=== PATIENT | male | born 1980 | race Caucasian/White ===

== ENCOUNTER 2020-07-15 19:12 | Emergency (ER) | payer BC, OTHER ==
[2020-07-15] MEDS: Albuterol/Ipratropium 3.0-0.5 MG/3 ML Neb Soln NEB ONE (19:20)
--- NOTE | 2020-07-15 19:29 | EDM.PDOC ---
ED HPI GENERAL MEDICAL PROBLEM - General Stated Complaint: ED VISIT Time Seen by Provider: 07/15/20 19:12 Source of Information: Reports: Patient History Limitations: Reports: No Limitations - History of Present Illness INITIAL COMMENTS - FREE TEXT/NARRATIVE: Patient comes emergency department today from the winter show here in town with complaints of shortness of breath. This patient has smoked cigarettes for 20 years about three quarters a pack a day. Over the past couple of days he has had some sinus congestion tightness and some shortness of breath. No fever no chills. He about every year at this time has a very similar presentation but this is more profound and got much worse while he was at the winter show. He has had a cough the past couple of days. Today he went to the winter shown was very difficult for him to breathe in there and he just cannot get a deep breath. He can only feel comfortable sitting forward. He has no pain in his chest. He has no swelling or globus sensation in his throat. He complains of sinus congestion and pressure and drainage. No weakness dizziness lightheadedness. No palpitations. No syncope. He has not had any covid exposure no covid symptoms. left lateral rib Pain Score (Numeric/FACES): 1 - Related Data Allergies Allergy/AdvReac Type Severity Reaction Status Date / Time No Known Allergies Allergy Verified 07/15/20 19:57 Home Meds: Home Meds Colchicine [Colcrys] 0.6 mg PO DAILY #3 tab 08/02/13 [Rx] Allopurinol [Zyloprim] 300 mg PO DAILY 07/15/20 [History] predniSONE [Prednisone] 60 mg PO DAILY 4 Days #15 tablet 07/15/20 [Rx] ED ROS GENERAL - Review of Systems Review Of Systems: Comprehensive ROS is negative, except as noted in HPI. ED EXAM, GENERAL - Physical Exam Exam: See Below Free Text/Narrative:: Pt is sitting in the tripod position and can only speak in 2-3 word sentences and appears to be air stacking a little bit. NO retractions. Exam Limited By: Respiratory Distress General Appearance: Alert, WD/WN, Moderate Distress Ears: Normal External Exam, Normal TMs Nose: Normal Inspection, Normal Mucosa Throat/Mouth: Normal Inspection, Normal Lips Head: Atraumatic, Normocephalic Neck: Normal Inspection, Supple, Non-Tender, Full Range of Motion Respiratory/Chest: Respiratory Distress, Decreased Breath Sounds (Bilaterally profoundly decreased. ), Wheezing (Inspiratory and expiratory wheezing. ). No: Accessory Muscle Use, Retractions Cardiovascular: Normal Peripheral Pulses, Regular Rate, Rhythm, Tachycardia GI/Abdominal: Normal Bowel Sounds, Soft (Male) Exam: Deferred Rectal (Males) Exam: Deferred Back Exam: Normal Inspection, Vertebral Tenderness Extremities: Normal Inspection, No Pedal Edema, Normal Capillary Refill Neurological: Alert, Oriented, Normal Cognition, No Motor/Sensory Deficits Psychiatric: Normal Affect, Normal Mood Skin Exam: Warm, Dry, Intact, Normal Color, No Rash Course - Vital Signs Last Recorded V/S: Last Vital Signs Temp 98 F 07/15/20 19:12 Pulse 100 07/15/20 21:00 Resp 16 07/15/20 21:00 BP 151/98 H 07/15/20 19:12 Pulse Ox 95 07/15/20 21:00 - Orders/Labs/Meds Labs: Laboratory Tests 07/15/20 Range/Units 19:20 SARS-CoV-2 RNA (LITTLE) Negative (NEGATIVE) Meds: Medications Discontinued Medications Generic Name Dose Route Start Last Admin Trade Name Freq PRN Reason Stop Dose Admin Albuterol 0 gm 07/15/20 21:09 07/15/20 21:15 Albuterol Hfa 18 Gm Inhaler INH 1 inhaler Q4H PRN Administration Shortness of Breath Albuterol/Ipratropium 3 ml 07/15/20 19:13 07/15/20 19:20 Albuterol/Ipratropium 3.0-0.5 Mg/3 Ml Neb Soln NEB 07/15/20 19:14 3 ml ONETIME ONE Administration Budesonide 0.5 mg 07/15/20 19:21 07/15/20 19:30 Budesonide 0.5 Mg/2 Ml Neb Susp NEB 07/15/20 19:22 0.5 mg ONETIME ONE Administration Ketorolac Tromethamine 30 mg 07/15/20 19:42 07/15/20 19:56 Ketorolac 30 Mg/Ml Sdv IM 07/15/20 19:43 30 mg ONETIME ONE Administration Levalbuterol HCl 2.5 mg 07/15/20 20:20 07/15/20 20:29 Levalbuterol Hcl 1.25 Mg/0.5 Ml Neb NEB 07/15/20 20:21 2.5 mg ONETIME ONE Administration Methylprednisolone Sodium Succinate 250 mg 07/15/20 19:35 07/15/20 19:55 Methylprednisolone Sodium Succinate 125 Mg/2 Ml Sdv IM 07/15/20 19:36 250 mg ONETIME ONE Administration - Radiology Interpretation Free Text/Narrative:: Per radiology no acute findings. - Re-Assessments/Exams Free Text/Narrative Re-Assessment/Exam: The patient initially was given a DuoNeb nebulizer. Followed up by 0.5 mg of budesonide. His chest x-ray shows no acute findings. He did have some mild improvement of his subjective symptoms he is still short of breath. He is still sitting in the tripod position. He actually has quite a bit of improvement of his lung sounds bilaterally. He still has some inspiratory and expiratory wheezing but is much more prevalent lung sounds at this time. No rhonchi or rales. He was given a Xopenex nebulizer 2.5 mg. He was given Solu-Medrol 250 mg IM. He was also given some ketorolac 30 mg IM because of rib pain with deep breath cough and movement primarily on the left mid axillary line of the chest. Following the above therapy the patient is quite a bit better. He is able to sit and move normally. He is in no respiratory distress. He has some very faint expiratory wheezing bilaterally but he has quite a bit of improvement of his lung sounds. I really wondering if this patient does not have some underlying undiagnosed asthma as he chronically can has some shortness of breath especially with exposure of the outdoor allergens. He has never had any pulmonary function test or spirometry completed. Discharge him home with prednisone as well as albuterol as needed. I would like him to follow-up with his primary care provider in the next week or so for consideration of spirometry and/or PFT in the coming weeks although he may need to wait a little bit as the steroids can alter these testing modalities. He feels quite a bit better. Discharge instructions as below are explained to the patient he was comfortable with this plan and his questions were answered. Departure - Departure Time of Disposition: 21:07 Disposition: Home, Self-Care 01 Clinical Impression: Reactive airway disease Qualifiers: Asthma severity: moderate Asthma persistence: persistent Asthma complication type: uncomplicated Qualified Code(s): J45.40 - Moderate persistent asthma, uncomplicated - Discharge Information Prescriptions: predniSONE [Prednisone] 60 mg PO DAILY 4 Days #15 tablet Instructions: Asthma, Adult, [id number] Referrals: PCP,None [Primary Care Provider] - Forms: ED Department Discharge Additional Instructions: Consider quitting smoking. Prednisone 60mg a day for the next 5 days. Rx sent to [facility]. Albuterol inhaler. 2 puffs every 4 hrs with the spacer as needed for SOB cough wheezing. Prescription sent home with you. Return to the ED if new or worsening symptoms. Follow up with PCP in 2 weeks and consider spirometry or Pulmonary Functioning test. Sepsis Event Note (ED) - Focused Exam Vital Signs: Vital Signs Temp Pulse Resp BP Pulse Ox 07/15/20 21:00 100 16 95 07/15/20 20:40 95 07/15/20 19:30 97 07/15/20 19:20 99 07/15/20 19:12 98 F 99 16 151/98 H 94 L
[2020-07-15] MEDS: Budesonide 0.5 MG/2 ML Neb Susp NEB ONE (19:30)
[2020-07-15] MEDS: methylPREDNISolone Sodium Succinate 125 MG/2 ML SDV IM ONE (19:55)
[2020-07-15] MEDS: Ketorolac 30 MG/ML SDV IM ONE (19:56)
--- NOTE | 2020-07-15 20:04 | CR ---
[id number] RAD/RAD Chest PA And Lateral EXAM: RAD Chest PA And Lateral INDICATION: CP, SOB COMPARISON: None. DISCUSSION: Cardiomediastinal silhouette is normal in size and contour. Lungs are clear. No pleural effusion or pneumothorax. IMPRESSION: No acute findings. Brian Santos MD 07/15/202001 Thank you for allowing us to participate in the care of your patient.
[2020-07-15] MEDS: Levalbuterol HCl 1.25 MG/0.5 ML Neb NEB ONE (20:29)
[2020-07-15] MEDS: Albuterol HFA 18 Gm Inhaler INH PRN (21:15)
== END 2020-07-15 21:25 | disposition home or self-care (01) ==
LOC: VM.ED 19:12
DX: J45.40 Moderate persistent asthma, uncomplicated (principal); Z20.822 Contact with and (suspected) exposure to COVID-19; Z79.899 Other long term (current) drug therapy
CPT/HCPCS: 71046; 94640; 96372; 99284; 99285-25; A9270-GY; J1885; J2930; J7620-GY; U0002